=== PATIENT | male | born 1955 | race Caucasian/White ===

== ENCOUNTER → 2018-09-04 09:25 | Outpatient (CLI) | payer OTHER, SELFPAY ==
--- NOTE | 2018-09-04 09:28 | RAD_ITS ---
STUDY: X-RAY - ABDOMEN/PELVIS REASON FOR EXAM: Male, 62 years old. Right flank pain. Possible kidney stone. TECHNIQUE: Single AP view of the abdomen / pelvis. COMPARISON: None. FINDINGS: Normal visualized lung bases. No definite renal or ureteral stones. There is an unremarkable bowel gas pattern. There is no demonstrated free abdominal air. The visualized liver, spleen and kidneys are grossly normal in size and morphology. Surgical bowel sutures seen in the pelvis. Normal visualized osseous structures. RAD/Abdomen Single View IMPRESSION: No definite acute abnormality. No definite renal or ureteral stones are seen. Electronically Signed: Willian Lopez MD at 16:51 EDT , Service support ,
== END ==
PROVIDERS: Family Provider Family Medicine; PCP Family Medicine; Referring Provider Nurse Practitioner Adult Health; Visit Provider Nurse Practitioner Adult Health
DX: R10.9 Unspecified abdominal pain (principal)
CPT/HCPCS: 74018; 87077; 87086; 87088; 87186

== ENCOUNTER → 2019-02-10 08:31 | Outpatient (CLI) | payer OTHER, SELFPAY ==
[2019-02-03 08:47] VITALS: BMI 28.1
--- NOTE | 2019-02-10 08:37 | RAD_ITS ---
STUDY: X-RAY - LEFT FOOT CLINICAL: Male, 63 years old. Nonhealing wound to bottom tip of the great toe TECHNIQUE: 3 view(s) of the foot. COMPARISON: None. FINDINGS: Mild age-related degenerative changes throughout the foot. Soft tissue ulceration noted at the distal first toe at the plantar aspect with underlying soft tissue swelling and edema. No definite evidence of osseous destruction to represent osteomyelitis at this time. Vascular calcifications. RAD/Foot min 3 Views IMPRESSION: Degenerative changes and swelling as above. No definitive osteomyelitis Electronically Signed: Umesh Willingham DO at 8:24 EDT Tel , Service support ,
== END ==
PROVIDERS: Family Provider Family Medicine; PCP Family Medicine; Referring Provider Surgery; Visit Provider Surgery
DX: M79.675 Pain in left toe(s) (principal); M79.672 Pain in left foot
CPT/HCPCS: 73630

== ENCOUNTER 2019-02-17 10:00 | Outpatient (RCR) | payer OTHER, SELFPAY ==
[2019-02-03 08:47] VITALS: BP 149/84; PULSE 76; RESP 18; TEMP 37.3; BMI 28.1
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
--- NOTE | 2019-02-10 07:58 | ART_ITS ---
Reason For Study: ulcer Left Segmental Pressures Left brachial= 147mmHg. Left posterior tibial artery = 180mmHg. Left dorsalis pedis artery = 182mmHg. Left digit = 165 mmHg. The left dorsalis pedis waveforms are triphasic. The left posterior tibial artery waveforms are triphasic. Right Segmental Pressures Right brachial= 151mmHg. Right posterior tibial artery = 190mmHg. Right dorsalis pedis artery = 193mmHg. Right digit = 141 mmHg. The right dorsalis pedis waveforms are triphasic. The right posterior tibial artery waveforms are triphasic. Indices The right ankle brachial index by the dorsalis pedis is 1.28. The right ankle brachial index by the posterior tibial artery is 1.26. The right digital-brachial index is .93. The left ankle brachial index by the dorsalis pedis is 1.21. The left ankle brachial index by the posterior tibial artery is 1.19. The left digital-brachial index is 1.09. Interpretation Summary Triphasic Doppler waveforms are noted at ankle level bilaterally. Pulse-volume waveform amplitudes appear satisfactory at all levels bilaterally. Resting ankle-brachial indices are normal bilaterally. Digital-brachial indices are bilaterally normal. There is no evidence of significant atherosclerotic peripheral arterial occlusive disease bilaterally. Ordering Physician: Jorge Roque Performed By: JIMMY ANDERSON Charles
[2019-02-10 09:14] VITALS: BP 160/100; PULSE 73; RESP 18; TEMP 36.4
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
[2019-02-17 10:11] VITALS: BP 143/74; PULSE 77; RESP 18; TEMP 36.7; BMI 28.1
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
== END 2019-03-01 23:59 ==
LOC: WC 10:00
PROVIDERS: Family Provider Family Medicine; PCP Family Medicine; Referring Provider Surgery; Visit Provider Surgery
DX: E11.621 Type 2 diabetes mellitus with foot ulcer (principal); Z90.49 Acquired absence of other specified parts of digestive tract; I10 Essential (primary) hypertension; E11.42 Type 2 diabetes mellitus with diabetic polyneuropathy; L97.522 Non-pressure chronic ulcer of other part of left foot with fat layer exposed
CPT/HCPCS: 11042; 93923; 99204; G0463

== ENCOUNTER 2019-03-24 08:00 | Outpatient (RCR) | payer OTHER, SELFPAY ==
[2019-03-02 00:18] VITALS: BP 143/74; PULSE 77; RESP 18; TEMP 36.7
[2019-03-10 09:30] VITALS: BP 148/78; PULSE 76; RESP 16; TEMP 37.2; BMI 28.1
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
[2019-03-24 08:14] VITALS: BP 184/92; PULSE 77; RESP 16; TEMP 37.1; BMI 28.1
[2019-03-24 08:30] LABS: Bedside Glucose 121 mg/dL (70-110)
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
== END 2019-03-31 23:59 ==
LOC: WC 08:00
PROVIDERS: Family Provider Family Medicine; PCP Family Medicine; Referring Provider Surgery; Visit Provider Surgery
DX: E11.621 Type 2 diabetes mellitus with foot ulcer (principal); L97.522 Non-pressure chronic ulcer of other part of left foot with fat layer exposed; E11.42 Type 2 diabetes mellitus with diabetic polyneuropathy; I10 Essential (primary) hypertension; Z90.49 Acquired absence of other specified parts of digestive tract; Z79.899 Other long term (current) drug therapy
CPT/HCPCS: 11042; 82962

== ENCOUNTER 2019-04-29 16:30 | Outpatient (RCR) | payer OTHER, SELFPAY ==
[2019-04-01 00:36] VITALS: BP 184/92; PULSE 77; RESP 16; TEMP 37.1
[2019-04-08 09:17] VITALS: BP 177/95; PULSE 73; RESP 16; TEMP 36.5; BMI 28.1
--- NOTE | 2019-04-08 13:03 | PCM.WC.PN ---
(1) Chronic ulcer of left foot with fat layer exposed Status: Chronic Current Visit: Yes Code(s): L97.522 - Non-pressure chronic ulcer of other part of left foot with fat layer exposed (2) Hallux limitus of left foot Status: Acute Current Visit: Yes Code(s): M20.5X2 - Other deformities of toe(s) (acquired), left foot (3) Malnutrition Status: Acute Current Visit: Yes Code(s): E46 - Unspecified protein-calorie malnutrition (4) Delayed wound healing Status: Acute Current Visit: Yes Code(s): T14.8XXD - Other injury of unspecified body region, subsequent encounter (5) Type 2 diabetes mellitus with diabetic polyneuropathy Status: Acute Current Visit: Yes Code(s): E11.42 - Type 2 diabetes mellitus with diabetic polyneuropathy Type of Wound Date of Service: 04/09/19 Chief Complaint: Diabetic foot ulcer, left great toe, Valentine grade 1 History of Wound: This is a 63-year-old male who was recently diagnosed with diabetes mellitus. He has a history of peripheral neuropathy. 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 Jara. Treatment including offloading measures, and the patient was fitted with an appropriate offloading boot. The patient indicates that he nearly healed the ulceration, but subsequently reverted to his normal daily routine, and the ulcer recurred. He presents with an ulceration on the plantar aspect of the left great toe, and indicates that he has been wearing his former street shoes. He denies fever, chill, nausea, vomiting, redness or odor. He relates the ulcer has decreased in size. Progress of Wound: Stable - Physical Exam Vital Signs Temp Pulse Resp BP 97.7 F L 73 16 177/95 H 04/08/19 09:17 04/08/19 09:17 04/08/19 09:17 04/08/19 09:17 General: Alert, Oriented x3, Cooperative HEENT: Atraumatic Extremities: No cyanosis, Capillary Refill Less than 3 Seconds, No Calf Tenderness - Negative Florentin and Bernardo signs bilateral, Diminished Peripheral Pulses, Edema - Mild, - - Decreased noted first metatarsophalangeal joint range of motion bilateral Skin: Ulcer/ Wound - No purulence, erythema, streaking, odor, infection, necrosis or deep probing. The ulcer bed is granular. The peripheral skin is atrophic Wound Measurements and Assessment - Nurse 1 - General Ulcer Measurement Start: 04/08/19 09:16 Freq: Status: Active Protocol: Activity Type Activity Date Activity User E-Sign Co-Sign Detail Recorded Client Recorded Date Recorded By Document 04/08/19 09:17 [facility] [id number] 04/08/19 09:23 [facility] 04/08/19 09:17 Wound Center Nurse 1 [Ulcer Assessment] #1 L Grt Toe -Combined with other wound No -Current Size (cm) - Length 0.5 -Current Size (cm) - Width 0.3 -Current Size (cm) - Depth 0.3 -Total Square Cm 0.15 -Date of Last Picture (Recall this 04/08/19 field) -Photo Taken Yes -Epithelialization None Present -Tunneling No -Undermining/Tunneling Yes -Undermining/Tunneling Starts (O' 11 clock) -Undermining/Tunneling Ends (O'clock) 6 -Maximum Distance (cm) 0.3 -Circular Undermining No -Exudate Amt None Present -Wound Margin Flat & Intact -Granulation Amt Small (1-33%) -Granulation Quality Goessel -Slough/Fibrin Yes -Necrosis Amt Large (67-100%) -Necrotic Tissue Type Adherent Slough -Texture (Selma-wound Skin Appearance) Assessed Callus Scarring -Moisture (Selma-wound Skin Appearance Assessed ) Dry/Scaly -Color (Selma-wound Skin Appearance) Assessed -Temperature (Selma-wound Skin No Abnormality Appearance) (Pt Warm) -Tenderness on Palpation (Selma-wound No Skin Appearance) -Ulcer Cleansing Rinsed/ Irrigated with Saline -Foul Odor after Cleansing No -Anesthetic Used 5% Lidocaine Gel WC - Nurse 2 - General Ulcer CM Notes Start: 04/08/19 09:16 Freq: Status: Active Protocol: Activity Type Activity Date Activity User E-Sign Co-Sign Detail Recorded Client Recorded Date Recorded By Document 04/08/19 10:02 AN [id number] 04/08/19 10:07 AN 04/08/19 10:02 Wound Center Nurse 2 [Procedure/Treatment] -Time 10:03 -Correct Patient Yes -Correct Side, Site, Position Yes -Correct Procedure Yes -Procedure Performed Yes -Type of Procedure Debridement -Clinical Debridement Subcutaneous -Post Debridement Size (cm) - Length 0.6 -Post Debridement Size (cm) - Width 0.4 -Post Debridement Size (cm) - Depth 0.3 -Total Square Cm 0.24 -Wound/Ulcer Outcome Not Healed -Ulcer Cleansing Rinsed/ Irrigated with Saline -Foul Odor after Cleansing No -Bioengineered Tissue No -Bleeding Controlled with Pressure -Offloading No -Treatment Response Procedure Tolerated Well [See Physician Procedure note for Specifics] Pain Scale: 0-10 Numeric [Pain] -Is Patient Pain Free? Yes Musculoskeletal: No Tenderness to Palpation of Joints or Extremities, Muscle Wasting Neurological: - - Lack of normal epicritic sensation light touch Psych/Mental Status: Normal Affect, Appropriate Debridement Note Post-Debridement Measurements/Treatment WC - Nurse 2 - General Ulcer CM Notes Start: 04/08/19 09:16 Freq: Status: Active Protocol: Activity Type Activity Date Activity User E-Sign Co-Sign Detail Recorded Client Recorded Date Recorded By Document 04/08/19 10:02 RONALDO [id number] 04/08/19 10:07 AN 04/08/19 10:02 Wound Center Nurse 2 #1 L Grt Toe -Time 10:03 -Correct Patient Yes -Correct Side, Site, Position Yes -Correct Procedure Yes -Procedure Performed Yes -Type of Procedure Debridement -Clinical Debridement Subcutaneous -Post Debridement Size (cm) - Length 0.6 -Post Debridement Size (cm) - Width 0.4 -Post Debridement Size (cm) - Depth 0.3 -Total Square Cm 0.24 -Wound/Ulcer Outcome Not Healed -Ulcer Cleansing Rinsed/ Irrigated with Saline -Foul Odor after Cleansing No -Bioengineered Tissue No -Bleeding Controlled with Pressure -Offloading No -Treatment Response Procedure Tolerated Well Pain Scale: 0-10 Numeric Is Patient Pain Free? Yes Wound debrided: plantar hallux Laterality: Left Wound Grade/Stage: grade 1 Type of Debridement: Excisional debridement Anesthesia Used: 5% Lidocaine Gel Depth: in the subcutaneous layer Percentage of wound debrided: 100 Instrument Used: #15 blade Tissue Removed: fibrous, devitalized subcutaneous, biofilm, slough Severity: Fat Layer Exposed Amount of bleeding with debridement: Mild Bleeding Controlled with: Pressure Patient tolerated procedure well Assessment/Plan Active Problems Chronic ulcer of left foot with fat layer exposed (Chronic) Hallux limitus of left foot (Acute) Malnutrition (Acute) Delayed wound healing (Acute) Type 2 diabetes mellitus with diabetic polyneuropathy (Acute) Assessment: Left hallux ulcer. Hallux limitus. Diabetes with neuropathy. Delayed wound healing. Malnutrition suspected Plan: This is a 63-year-old male seen today for chronic ulceration and I reviewed and discussed his case. He has been using Santyl. Recommend advanced wound healing product, with regranix to optimize healing. The indication and purpose of his progress were discussed. This is medically necessary for limb salvage and to optimize healing. It is noted he failed other previous conservative care options. Prior authorization will be initiated. Recommend nutritional supplementation, Paulie. To drink twice daily. To better offload the ulcer site with a cam walker boot with offloading dual density Plastizote liners with a pocket. A prescription was provided for him to obtain at the [facility]. His previous noninvasive lower extremity arterial study was also performed,which appears to be normal, revealing triphasic waveforms at ankle level bilaterally, and normal resting ankle?brachial indices and normal digital?brachial indices bilaterally. His previous lab results have been obtained from [facility], dated January 12, 2019, with results as follows: Fasting glucose 126, erythrocyte sedimentation rate 8, total protein 6.5, hemoglobin A1c 6.2, folate 31.8, vitamin B12 613, albumin 3.3. Previous x-rays from 02/10/2019 reviewed without acute injuries or osseous destruction. To return to the wound healing center in 1 week or call sooner if he has any questions or concerns.
[2019-04-15 08:18] VITALS: BP 146/88; PULSE 75; RESP 14; TEMP 36.8; BMI 28.1
--- NOTE | 2019-04-15 09:19 | PCM.WC.PN ---
(1) Chronic ulcer of left foot with fat layer exposed Status: Chronic Current Visit: Yes Code(s): L97.522 - Non-pressure chronic ulcer of other part of left foot with fat layer exposed (2) Hallux limitus of left foot Status: Chronic Current Visit: Yes Code(s): M20.5X2 - Other deformities of toe(s) (acquired), left foot (3) Malnutrition Status: Chronic Current Visit: Yes Code(s): E46 - Unspecified protein-calorie malnutrition (4) Delayed wound healing Status: Chronic Current Visit: Yes Code(s): T14.8XXD - Other injury of unspecified body region, subsequent encounter (5) Type 2 diabetes mellitus with diabetic polyneuropathy Status: Chronic Current Visit: Yes Code(s): E11.42 - Type 2 diabetes mellitus with diabetic polyneuropathy Type of Wound Date of Service: 04/15/19 Chief Complaint: Diabetic foot ulcer, left great toe, Valentine grade 1 History of Wound: This is a 63-year-old male who was recently diagnosed with diabetes mellitus. He has a history of peripheral neuropathy also. He denies fever, chill, nausea, vomiting, loss of appetite. He does not obtain his offloading CAM Walker as advised and will have to push his appointment also next week due to an unplanned and his work schedule. He continues to wear crocs shoes which are not advised. He did obtain his nutrition supplementation Paulie paige and is taking this as advised. The prior authorization for regranix advanced wound healing product is still pending. He has been applying Santyl daily. Progress of Wound: Overall stable with improving ulcer bed quality - Physical Exam Vital Signs Temp Pulse Resp BP 98.2 F 75 14 146/88 H 04/15/19 08:18 04/15/19 08:18 04/15/19 08:18 04/15/19 08:18 General: Alert, Oriented x3, Cooperative HEENT: Atraumatic Extremities: No cyanosis, Capillary Refill Less than 3 Seconds, No Calf Tenderness, Diminished Peripheral Pulses, Edema - Mild, - - decrease loaded first metatarsophalangeal joint range of motion consistent with hallux limitus Skin: Ulcer/ Wound - No purulence, erythema, streaking, odor, infection, deep tissue exposure, eschar or necrosis. Peripheral skin is atrophic Wound Measurements and Assessment WC - Nurse 1 - General Ulcer Measurement Start: 04/08/19 09:16 Freq: Status: Active Protocol: Activity Type Activity Date Activity User E-Sign Co-Sign Detail Recorded Client Recorded Date Recorded By Document 04/15/19 08:18 CS [id number] 04/15/19 08:22 CS 04/15/19 08:18 Wound Center Nurse 1 [Ulcer Assessment] #1 L Grt Toe -Combined with other wound No -Current Size (cm) - Length 0.5 -Current Size (cm) - Width 0.3 -Current Size (cm) - Depth 0.4 -Total Square Cm 0.15 -Photo Taken No -Epithelialization None Present -Tunneling No -Undermining/Tunneling No -Circular Undermining No -Exudate Amt None Present -Wound Margin Thickened -Granulation Amt None Present (0 %) -Granulation Quality N/A -Slough/Fibrin Yes -Necrosis Amt Medium (34-66%) -Necrotic Tissue Type Adherent Slough -Structure Exposed None/Limited to Skin Breakdown -Texture (Selma-wound Skin Appearance) Callus -Moisture ([place]-wound Skin Appearance No Abnormality ) Assessed -Color ([place]ma-wound Skin Appearance) No Abnormality Assessed -Temperature ([place]-wound Skin No Abnormality Appearance) (Pt Warm) -Tenderness on Palpation ([place]-wound No Skin Appearance) -Ulcer Cleansing Rinsed/ Irrigated with Saline -Foul Odor after Cleansing No -Anesthetic Used 4% Lidocaine Solution [Edema Assessment] -Lower Limb Edema Present NA - Nurse 2 - General Ulcer CM Notes Start: 04/08/19 09:16 Freq: Status: Active Protocol: Activity Type Activity Date Activity User E-Sign Co-Sign Detail Recorded Client Recorded Date Recorded By Document 04/15/19 08:32 AN [id number] 04/15/19 08:35 AN 04/15/19 08:32 Wound Center Nurse 2 [Procedure/Treatment] #1 L Grt Toe -Time 08:34 -Correct Patient Yes -Correct Side, Site, Position Yes -Correct Procedure Yes -Procedure Performed Yes -Type of Procedure Debridement -Clinical Debridement Subcutaneous -Post Debridement Size (cm) - Length 0.6 -Post Debridement Size (cm) - Width 0.4 -Post Debridement Size (cm) - Depth 0.3 -Total Square Cm 0.24 -Wound/Ulcer Outcome Not Healed -Ulcer Cleansing Rinsed/ Irrigated with Saline -Foul Odor after Cleansing No -Bleeding Controlled with Pressure -Offloading Yes -Treatment Response Procedure Tolerated Well [See Physician Procedure note for Specifics] Pain Scale: 0-10 Numeric [Pain] -Is Patient Pain Free? Yes Musculoskeletal: No Tenderness to Palpation of Joints or Extremities, Muscle Wasting Neurological: - - Lack of normal epicritic sensation light touch and is consistent with neuropathy Psych/Mental Status: Normal Affect, Appropriate Debridement Note Post-Debridement Measurements/Treatment WC - Nurse 2 - General Ulcer CM Notes Start: 04/08/19 09:16 Freq: Status: Active Protocol: Activity Type Activity Date Activity User E-Sign Co-Sign Detail Recorded Client Recorded Date Recorded By Document 04/08/19 10:02 AN [id number] 04/08/19 10:07 AN Document 04/15/19 08:32 AN [id number] 04/15/19 08:35 AN 04/08/19 04/15/19 10:02 08:32 Wound Center Nurse 2 #1 L Grt Toe -Time 10:03 08:34 -Correct Patient Yes Yes -Correct Side, Site, Position Yes Yes -Correct Procedure Yes Yes -Procedure Performed Yes Yes -Type of Procedure Debridement Debridement -Clinical Debridement Subcutaneous Subcutaneous -Post Debridement Size (cm) - Length 0.6 0.6 -Post Debridement Size (cm) - Width 0.4 0.4 -Post Debridement Size (cm) - Depth 0.3 0.3 -Total Square Cm 0.24 0.24 -Wound/Ulcer Outcome Not Healed Not Healed -Ulcer Cleansing Rinsed/ Rinsed/ Irrigated with Irrigated with Saline Saline -Foul Odor after Cleansing No No -Bioengineered Tissue No -Bleeding Controlled with Pressure Pressure -Offloading No Yes -Treatment Response Procedure Procedure Tolerated Well Tolerated Well Pain Scale: 0-10 Numeric Is Patient Pain Free? Yes Yes Wound debrided: plantar hallux Laterality: Left Wound Grade/Stage: grade 1 Type of Debridement: Excisional debridement Anesthesia Used: 5% Lidocaine Gel Depth: in the subcutaneous layer Percentage of wound debrided: 100 Instrument Used: #15 blade Tissue Removed: fibrous, devitalized subcutaneous, biofilm, slough Severity: Fat Layer Exposed Amount of bleeding with debridement: Mild Bleeding Controlled with: Pressure Patient tolerated procedure well Assessment/Plan Active Problems Chronic ulcer of left foot with fat layer exposed (Chronic) Hallux limitus of left foot (Chronic) Malnutrition (Chronic) Delayed wound healing (Chronic) Type 2 diabetes mellitus with diabetic polyneuropathy (Chronic) Assessment: Left hallux ulcer with fat layer exposed. Hallux limitus. Diabetes with neuropathy. Delayed wound healing. Malnutrition suspected Plan: This is a 63-year-old male seen today for chronic ulceration and I reviewed and discussed his case. He has been using Santyl. I recommend application of Leigh today and he should change this every day; he is amendable. The purpose of this has been explaining he is ready for collagen dressing now that the ulcer bed quality has improved. I also recommend advanced wound healing product, with regranix to optimize healing. The indication and purpose of his progress were discussed. This is medically necessary for limb salvage and to optimize healing. It is noted he failed other previous conservative care options. Prior authorization will be initiated and this is still pending. to continue nutritional supplementation, Paulie. To drink twice daily. To better offload the ulcer site with a cam walker boot with offloading dual density Plastizote liners with a pocket. A prescription was provided for him to obtain at [facility]. His previous noninvasive lower extremity arterial study was also performed,which appears to be normal, revealing triphasic waveforms at ankle level bilaterally, and normal resting ankle?brachial indices and normal digital?brachial indices bilaterally. His previous lab results have been obtained from [facility], dated January 12, 2019, with results as follows: Fasting glucose 126, erythrocyte sedimentation rate 8, total protein 6.5, hemoglobin A1c 6.2, folate 31.8, vitamin B12 613, albumin 3.3. Previous x-rays from 02/10/2019 reviewed without acute injuries or osseous destruction. To return to the wound healing center in 1 week or call sooner if he has any questions or concerns.
[2019-04-22 16:05] VITALS: BP 138/83; PULSE 70; RESP 18; TEMP 36.5; BMI 28.1
--- NOTE | 2019-04-22 16:47 | PCM.WC.PN ---
(1) Chronic ulcer of left foot with fat layer exposed Status: Chronic Current Visit: Yes Code(s): L97.522 - Non-pressure chronic ulcer of other part of left foot with fat layer exposed (2) Hallux limitus of left foot Status: Chronic Current Visit: Yes Code(s): M20.5X2 - Other deformities of toe(s) (acquired), left foot (3) Malnutrition Status: Chronic Current Visit: Yes Code(s): E46 - Unspecified protein-calorie malnutrition (4) Delayed wound healing Status: Chronic Current Visit: Yes Code(s): T14.8XXD - Other injury of unspecified body region, subsequent encounter (5) Type 2 diabetes mellitus with diabetic polyneuropathy Status: Chronic Current Visit: Yes Code(s): E11.42 - Type 2 diabetes mellitus with diabetic polyneuropathy (6) Pre-ulcerative corn or callous Status: Chronic Current Visit: Yes Code(s): L84 - Corns and callosities Type of Wound Date of Service: 04/22/19 Chief Complaint: Diabetic foot ulcer, left great toe, Valentine grade 1 History of Wound: This is a 63-year-old male who was recently diagnosed with diabetes mellitus. He has a history of peripheral neuropathy also. He denies fever, chill, nausea, vomiting, loss of appetite. He does not obtain his offloading CAM Walker as advised and is scheduled to get this tomorrow. He continues to wear crocs shoes which are not advised. He did obtain his nutrition supplementation Paulie paige and is taking this as advised. reGranix has been ordered for him. Progress of Wound: Stable - Physical Exam Vital Signs Temp Pulse Resp BP 97.7 F L 70 18 138/83 H 04/22/19 16:05 04/22/19 16:05 04/22/19 16:05 04/22/19 16:05 General: Alert, Oriented x3, Cooperative Extremities: No cyanosis, Capillary Refill Less than 3 Seconds, No Calf Tenderness, Diminished Peripheral Pulses, Edema, - - Decreased loaded first metatarsophalangeal joint range of motion Skin: Ulcer/ Wound - No purulence, erythema, streaking, odor, or infection. No deep probing or necrosis or interdigital maceration. Peripheral skin is hairless and atrophic. Wound Measurements and Assessment WC - Nurse 1 - General Ulcer Measurement Start: 04/08/19 09:16 Freq: Status: Active Protocol: Activity Type Activity Date Activity User E-Sign Co-Sign Detail Recorded Client Recorded Date Recorded By Document 04/22/19 16:05 RB [id number] 04/22/19 16:08 RB 04/22/19 16:05 Wound Center Nurse 1 [Ulcer Assessment] #1 L Grt Toe -Combined with other wound No -Current Size (cm) - Length 0.3 -Current Size (cm) - Width 0.2 -Current Size (cm) - Depth 0.2 -Total Square Cm 0.06 -Tunneling No -Undermining/Tunneling Yes -Undermining/Tunneling Starts (O' 12 clock) -Undermining/Tunneling Ends (O'clock) 12 -Maximum Distance (cm) 0.1 -Circular Undermining Yes -Exudate Amt Small -Exudate Type Serosanguineous -Wound Margin Distinct, Outline Attached -Granulation Amt Medium (34-66%) -Granulation Quality [place] -Slough/Fibrin Yes -Necrosis Amt Small (1-33%) -Necrotic Tissue Type Adherent Slough -Structure Exposed N/A -Texture (Selma-wound Skin Appearance) Assessed -Moisture (Selma-wound Skin Appearance Assessed ) -Color (Selma-wound Skin Appearance) Assessed -Temperature (Selma-wound Skin No Abnormality Appearance) (Pt Warm) -Tenderness on Palpation (Selma-wound No Skin Appearance) -Ulcer Cleansing Rinsed/ Irrigated with Saline -Foul Odor after Cleansing No -Anesthetic Used 5% Lidocaine Gel WC - Nurse 2 - General Ulcer CM Notes Start: 04/08/19 09:16 Freq: Status: Active Protocol: Activity Type Activity Date Activity User E-Sign Co-Sign Detail Recorded Client Recorded Date Recorded By Document 04/22/19 16:39 AN [id number] 04/22/19 16:42 AN 04/22/19 16:39 Wound Center Nurse 2 [Procedure/Treatment] -Time 16:42 -Correct Patient Yes -Correct Side, Site, Position Yes -Correct Procedure Yes -Procedure Performed Yes -Type of Procedure Debridement -Clinical Debridement Subcutaneous -Post Debridement Size (cm) - Length 0.6 -Post Debridement Size (cm) - Width 0.5 -Post Debridement Size (cm) - Depth 0.4 -Total Square Cm 0.30 -Wound/Ulcer Outcome Not Healed -Ulcer Cleansing Rinsed/ Irrigated with Saline -Foul Odor after Cleansing No -Bioengineered Tissue No -Bleeding Controlled with Pressure -Type of Offloading Camwalker -Treatment Response Procedure Tolerated Well [See Physician Procedure note for Specifics] Pain Scale: 0-10 Numeric [Pain] -Is Patient Pain Free? Yes Musculoskeletal: No Tenderness to Palpation of Joints or Extremities, Muscle Wasting, - - Compartments soft to palpate Neurological: - - Lack of normal epicritic sensation light touch consistent with neuropathy Psych/Mental Status: Normal Affect, Appropriate Debridement Note Post-Debridement Measurements/Treatment WC - Nurse 2 - General Ulcer CM Notes Start: 04/08/19 09:16 Freq: Status: Active Protocol: Activity Type Activity Date Activity User E-Sign Co-Sign Detail Recorded Client Recorded Date Recorded By Document 04/08/19 10:02 AN [id number] 04/08/19 10:07 AN Document 04/15/19 08:32 AN [id number] 04/15/19 08:35 AN Document 04/22/19 16:39 AN [id number] 04/22/19 16:42 AN 04/08/19 04/15/19 04/22/19 10:02 08:32 16:39 Wound Center Nurse 2 #1 L Grt Toe -Time 10:03 08:34 16:42 -Correct Patient Yes Yes Yes -Correct Side, Site, Position Yes Yes Yes -Correct Procedure Yes Yes Yes -Procedure Performed Yes Yes Yes -Type of Procedure Debridement Debridement Debridement -Clinical Debridement Subcutaneous Subcutaneous Subcutaneous -Post Debridement Size (cm) - Length 0.6 0.6 0.6 -Post Debridement Size (cm) - Width 0.4 0.4 0.5 -Post Debridement Size (cm) - Depth 0.3 0.3 0.4 -Total Square Cm 0.24 0.24 0.30 -Wound/Ulcer Outcome Not Healed Not Healed Not Healed -Ulcer Cleansing Rinsed/ Rinsed/ Rinsed/ Irrigated with Irrigated with Irrigated with Saline Saline Saline -Foul Odor after Cleansing No No No -Bioengineered Tissue No No -Bleeding Controlled with Pressure Pressure Pressure -Offloading No Yes -Type of Offloading Camwalker -Treatment Response Procedure Procedure Procedure Tolerated Well Tolerated Well Tolerated Well Pain Scale: 0-10 Numeric Is Patient Pain Free? Yes Yes Yes Wound debrided: plantar distal hallux Laterality: Left Type of Debridement: Excisional debridement Anesthesia Used: 5% Lidocaine Gel Depth: in the subcutaneous layer Percentage of wound debrided: 100 Instrument Used: #15 blade Tissue Removed: fibrous, devitalized subcutaneous, biofilm, slough Severity: Fat Layer Exposed Amount of bleeding with debridement: Mild Bleeding Controlled with: Pressure Patient tolerated procedure well Assessment/Plan Active Problems Chronic ulcer of left foot with fat layer exposed (Chronic) Hallux limitus of left foot (Chronic) Malnutrition (Chronic) Delayed wound healing (Chronic) Type 2 diabetes mellitus with diabetic polyneuropathy (Chronic) Pre-ulcerative corn or callous (Chronic) Assessment: Left hallux ulcer with fat layer exposed. Hallux limitus. Diabetes with neuropathy. Delayed wound healing. Malnutrition suspected Plan: This is a 63-year-old male seen today for chronic ulceration and I reviewed and discussed his case. He has been using Santyl. I recommend application of Leigh today. he was also approved for advanced wound product, regranex and this will be applied daily at home. The purpose of this has been explaining he is ready for collagen dressing now that the ulcer bed quality has improved. To continue nutritional supplementation, Paulie. To drink twice daily. To better offload the ulcer site with a cam walker boot with offloading dual density Plastizote liners with a pocket. A prescription was provided for him to obtain at the [facility] ankle Center. His previous noninvasive lower extremity arterial study was also performed,which appears to be normal, revealing triphasic waveforms at ankle level bilaterally, and normal resting ankle?brachial indices and normal digital?brachial indices bilaterally. His previous lab results have been obtained from [facility], dated January 12, 2019, with results as follows: Fasting glucose 126, erythrocyte sedimentation rate 8, total protein 6.5, hemoglobin A1c 6.2, folate 31.8, vitamin B12 613, albumin 3.3. Previous x-rays from 02/10/2019 reviewed without acute injuries or osseous destruction. To return to the wound healing center in 1 week or call sooner if he has any questions or concerns.
[2019-04-29 16:41] VITALS: BP 137/84; PULSE 71; RESP 18; TEMP 36.6; BMI 28.1
--- NOTE | 2019-04-29 17:08 | PCM.WC.PN ---
(1) Chronic ulcer of left foot with fat layer exposed Status: Chronic Code(s): L97.522 - Non-pressure chronic ulcer of other part of left foot with fat layer exposed (2) Hallux limitus of left foot Status: Chronic Code(s): M20.5X2 - Other deformities of toe(s) (acquired), left foot (3) Malnutrition Status: Chronic Code(s): E46 - Unspecified protein-calorie malnutrition (4) Delayed wound healing Status: Chronic Code(s): T14.8XXD - Other injury of unspecified body region, subsequent encounter (5) Type 2 diabetes mellitus with diabetic polyneuropathy Status: Chronic Code(s): E11.42 - Type 2 diabetes mellitus with diabetic polyneuropathy (6) Pre-ulcerative corn or callous Status: Chronic Code(s): L84 - Corns and callosities Type of Wound Date of Service: 04/29/19 Chief Complaint: Diabetic foot ulcer, left great toe, Valentine grade 1 History of Wound: This is a 63-year-old male who was recently diagnosed with diabetes mellitus. He has a history of peripheral neuropathy also. He denies fever, chill, nausea, vomiting, loss of appetite. He does not obtain his offloading CAM Walker as advised and is scheduled to get this tomorrow. He now wears a cam walker offloading boot as advised. He did obtain his nutrition supplementation Paulie paige and is taking this as advised. reGranix has been ordered for him and he recently actually forgot this at work. Progress of Wound: Stable - Physical Exam Vital Signs Temp Pulse Resp BP 98 F 71 18 137/84 H 04/29/19 16:41 04/29/19 16:41 04/29/19 16:41 04/29/19 16:41 General: Alert, Oriented x3, Cooperative, No apparent distress Extremities: No cyanosis, Capillary Refill Less than 3 Seconds, No Calf Tenderness - Negative Florentin and Bernardo signs bilateral, Diminished Peripheral Pulses, Edema - Mild Skin: Ulcer/ Wound - No purulence, erythema, streaking, odor, or infection. No interdigital maceration. Peripheral skin is hairless and atrophic. There is no deep probing. Wound Measurements and Assessment WC - Nurse 1 - General Ulcer Measurement Start: 04/08/19 09:16 Freq: Status: Active Protocol: Activity Type Activity Date Activity User E-Sign Co-Sign Detail Recorded Client Recorded Date Recorded By Document 04/29/19 16:41 RB [id number] 04/29/19 16:46 RB 04/29/19 16:41 Wound Center Nurse 1 [Ulcer Assessment] #1 L Grt Toe -Combined with other wound No -Current Size (cm) - Length 0.5 -Current Size (cm) - Width 0.3 -Current Size (cm) - Depth 0.3 -Total Square Cm 0.15 -Tunneling No -Undermining/Tunneling No -Circular Undermining No -Exudate Amt Small -Exudate Type Serosanguineous -Wound Margin Thickened -Granulation Amt Medium (34-66%) -Granulation Quality Pale -Slough/Fibrin Yes -Necrosis Amt Medium (34-66%) -Necrotic Tissue Type Adherent Slough -Structure Exposed N/A -Texture (Selma-wound Skin Appearance) Callus -Moisture (Selma-wound Skin Appearance Assessed ) -Color (Selma-wound Skin Appearance) Assessed -Temperature ([place]ma-wound Skin No Abnormality Appearance) (Pt Warm) -Tenderness on Palpation (Selma-wound No Skin Appearance) -Ulcer Cleansing Rinsed/ Irrigated with Saline -Foul Odor after Cleansing No -Anesthetic Used 4% Lidocaine Solution WC - Nurse 2 - General Ulcer CM Notes Start: 04/08/19 09:16 Freq: Status: Active Protocol: Activity Type Activity Date Activity User E-Sign Co-Sign Detail Recorded Client Recorded Date Recorded By Document 04/29/19 17:04 AN [id number] 04/29/19 17:07 AN 04/29/19 17:04 Wound Center Nurse 2 [Procedure/Treatment] -Time 17:05 -Correct Patient Yes -Correct Side, Site, Position Yes -Correct Procedure Yes -Procedure Performed Yes -Type of Procedure Debridement -Clinical Debridement Subcutaneous -Post Debridement Size (cm) - Length 0.6 -Post Debridement Size (cm) - Width 0.4 -Post Debridement Size (cm) - Depth 0.3 -Total Square Cm 0.24 -Wound/Ulcer Outcome Not Healed -Ulcer Cleansing Rinsed/ Irrigated with Saline -Bleeding Controlled with Pressure -Offloading Yes -Type of Offloading Camwalker -Treatment Response Procedure Tolerated Well [See Physician Procedure note for Specifics] Pain Scale: 0-10 Numeric [Pain] -Is Patient Pain Free? Yes Musculoskeletal: No Tenderness to Palpation of Joints or Extremities, Muscle Wasting, - - Decreased loaded first metatarsophalangeal joint range of motion consistent with hallux limitus Neurological: - - Lack of normal epicritic sensation light touch consistent with neuropathy Psych/Mental Status: Normal Affect, Appropriate Debridement Note Post-Debridement Measurements/Treatment WC - Nurse 2 - General Ulcer CM Notes Start: 04/08/19 09:16 Freq: Status: Active Protocol: Activity Type Activity Date Activity User E-Sign Co-Sign Detail Recorded Client Recorded Date Recorded By Document 04/08/19 10:02 AN [id number] 04/08/19 10:07 AN Document 04/15/19 08:32 AN [id number] 04/15/19 08:35 AN Document 04/22/19 16:39 AN [id number] 04/22/19 16:42 AN Document 04/29/19 17:04 AN [id number] 04/29/19 17:07 AN 04/08/19 04/15/19 04/22/19 10:02 08:32 16:39 Wound Center Nurse 2 #1 L Grt Toe -Time 10:03 08:34 16:42 -Correct Patient Yes Yes Yes -Correct Side, Site, Position Yes Yes Yes -Correct Procedure Yes Yes Yes -Procedure Performed Yes Yes Yes -Type of Procedure Debridement Debridement Debridement -Clinical Debridement Subcutaneous Subcutaneous Subcutaneous -Post Debridement Size (cm) - Length 0.6 0.6 0.6 -Post Debridement Size (cm) - Width 0.4 0.4 0.5 -Post Debridement Size (cm) - Depth 0.3 0.3 0.4 -Total Square Cm 0.24 0.24 0.30 -Wound/Ulcer Outcome Not Healed Not Healed Not Healed -Ulcer Cleansing Rinsed/ Rinsed/ Rinsed/ Irrigated with Irrigated with Irrigated with Saline Saline Saline -Foul Odor after Cleansing No No No -Bioengineered Tissue No No -Bleeding Controlled with Pressure Pressure Pressure -Offloading No Yes -Type of Offloading Camwalker -Treatment Response Procedure Procedure Procedure Tolerated Well Tolerated Well Tolerated Well Pain Scale: 0-10 Numeric Is Patient Pain Free? Yes Yes Yes 04/29/19 17:04 Wound Center Nurse 2 #1 L Grt Toe -Time 17:05 -Correct Patient Yes -Correct Side, Site, Position Yes -Correct Procedure Yes -Procedure Performed Yes -Type of Procedure Debridement -Clinical Debridement Subcutaneous -Post Debridement Size (cm) - Length 0.6 -Post Debridement Size (cm) - Width 0.4 -Post Debridement Size (cm) - Depth 0.3 -Total Square Cm 0.24 -Wound/Ulcer Outcome Not Healed -Ulcer Cleansing Rinsed/ Irrigated with Saline -Foul Odor after Cleansing -Bioengineered Tissue -Bleeding Controlled with Pressure -Offloading Yes -Type of Offloading Camwalker -Treatment Response Procedure Tolerated Well Pain Scale: 0-10 Numeric Is Patient Pain Free? Yes Wound debrided: hallux Laterality: Left Wound Grade/Stage: grade 1 Type of Debridement: Excisional debridement Anesthesia Used: 5% Lidocaine Gel Depth: in the subcutaneous layer Percentage of wound debrided: 100 Instrument Used: #15 blade Tissue Removed: fibrous, devitalized subcutaneous, biofilm, slough Severity: Fat Layer Exposed Amount of bleeding with debridement: Mild Bleeding Controlled with: Pressure Patient tolerated procedure well Assessment/Plan Assessment: Left hallux ulcer with fat layer exposed. Hallux limitus. Diabetes with neuropathy. Delayed wound healing. Malnutrition suspected Plan: This is a 63-year-old male seen today for chronic ulceration and I reviewed and discussed his case. He has been using Santyl and regranix this past week. He will resume regranix use when he obtains it from work. His schedule. The purpose of this has been explaining he is ready for collagen dressing now that the ulcer bed quality has improved. To continue nutritional supplementation, Paulie. To drink twice daily. To better offload the ulcer site with a cam walker boot with offloading dual density Plastizote liners with a pocket. His previous noninvasive lower extremity arterial study was also performed,which appears to be normal, revealing triphasic waveforms at ankle level bilaterally, and normal resting ankle?brachial indices and normal digital?brachial indices bilaterally. His previous lab results have been obtained from [facility], dated January 12, 2019, with results as follows: Fasting glucose 126, erythrocyte sedimentation rate 8, total protein 6.5, hemoglobin A1c 6.2, folate 31.8, vitamin B12 613, albumin 3.3. Previous x-rays from 02/10/2019 reviewed without acute injuries or osseous destruction. To return to the wound healing center in 1 week or call sooner if he has any questions or concerns.
== END 2019-05-01 23:59 ==
LOC: WC 16:30
PROVIDERS: Family Provider Family Medicine; PCP Family Medicine; Referring Provider Surgery; Visit Provider Podiatrist
DX: E11.621 Type 2 diabetes mellitus with foot ulcer (principal); M20.5X2 Other deformities of toe(s) (acquired), left foot; E11.42 Type 2 diabetes mellitus with diabetic polyneuropathy; L97.522 Non-pressure chronic ulcer of other part of left foot with fat layer exposed
CPT/HCPCS: 11042; 11044

== ENCOUNTER 2019-05-27 08:30 | Outpatient (RCR) | payer OTHER, SELFPAY ==
[2019-05-02 00:31] VITALS: BP 137/84; PULSE 71; RESP 18; TEMP 36.6
[2019-05-06 09:04] VITALS: BP 157/98; PULSE 68; RESP 18; TEMP 36.6; BMI 28.1
--- NOTE | 2019-05-06 11:50 | PCM.WC.PN ---
(1) Chronic ulcer of left foot with fat layer exposed Status: Chronic Code(s): L97.522 - Non-pressure chronic ulcer of other part of left foot with fat layer exposed (2) Skin ulcer of left foot Status: Acute Code(s): L97.529 - Non-pressure chronic ulcer of other part of left foot with unspecified severity (3) Diabetic neuropathy Status: Chronic Qualifiers: Diabetes mellitus type: type 2 Code(s): E11.40 - Type 2 diabetes mellitus with diabetic neuropathy, unspecified (4) Hallux limitus of left foot Status: Chronic Code(s): M20.5X2 - Other deformities of toe(s) (acquired), left foot (5) Malnutrition Status: Chronic Code(s): E46 - Unspecified protein-calorie malnutrition (6) Delayed wound healing Status: Chronic Code(s): T14.8XXD - Other injury of unspecified body region, subsequent encounter (7) Pre-ulcerative corn or callous Status: Chronic Code(s): L84 - Corns and callosities Type of Wound Date of Service: 05/06/19 Chief Complaint: Diabetic foot ulcer, left great toe, Valentine grade 1. Callus right great toe History of Wound: This is a 63-year-old male who was recently diagnosed with diabetes mellitus. He has a history of peripheral neuropathy also. He denies fever, chill, nausea, vomiting, loss of appetite. He did obtain his offloading CAM Walker as advised and intermittently still wears other close shoes which is not advised. He did obtain his nutrition supplementation Paulie paige and is taking this as advised. He changes the dressing daily with her Granix. He also complains of a callus formation to his other foot on the right great toe which she is worried will turn into wound; he asked for help trimming this today which she is not able to safely perform on his own. Progress of Wound: Stable - Physical Exam Vital Signs Temp Pulse Resp BP 97.9 F 68 18 157/98 H 05/06/19 09:04 05/06/19 09:04 05/06/19 09:04 05/06/19 09:04 General: Alert, Oriented x3, Cooperative, No apparent distress HEENT: Atraumatic Extremities: No cyanosis, Capillary Refill Less than 3 Seconds, No Calf Tenderness - Negative Florentin and Bernardo signs bilateral, Diminished Peripheral Pulses, Edema - Mild, - - No fluctuance or bogginess on palpation bilateral. Decreased loaded first metatarsophalangeal joint range of motion bilateral Skin: Ulcer/ Wound - No purulence, erythema, streaking, odor, infection bilateral. There is no deep probing the necrosis left hallux. There is callus formation with some hemorrhagic bleeding noted to the right distal hallux. Upon debridement there is no skin discontinuity or infection. The peripheral skin is hairless and atrophic bilateral lower extremities Wound Measurements and Assessment WC - Nurse 1 - General Ulcer Measurement Start: 05/06/19 09:03 Freq: Status: Active Protocol: Activity Type Activity Date Activity User E-Sign Co-Sign Detail Recorded Client Recorded Date Recorded By Document 05/06/19 09:04 RB [id number] 05/06/19 09:06 RB 05/06/19 09:04 Wound Center Nurse 1 [Ulcer Assessment] #1 L Grt Toe -Combined with other wound No -Current Size (cm) - Length 0.3 -Current Size (cm) - Width 0.2 -Current Size (cm) - Depth 0.2 -Total Square Cm 0.06 -Tunneling No -Undermining/Tunneling No -Circular Undermining No -Exudate Amt Small -Exudate Type Serosanguineous -Wound Margin Thickened -Granulation Amt Medium (34-66%) -Granulation Quality [place] -Slough/Fibrin Yes -Necrosis Amt Small (1-33%) -Necrotic Tissue Type Adherent Slough -Structure Exposed N/A -Texture (Selma-wound Skin Appearance) Assessed Callus -Moisture (Selma-wound Skin Appearance Assessed ) -Color (Selma-wound Skin Appearance) Assessed -Temperature (Selma-wound Skin No Abnormality Appearance) (Pt Warm) -Tenderness on Palpation (Selma-wound No Skin Appearance) -Ulcer Cleansing Rinsed/ Irrigated with Saline -Foul Odor after Cleansing No -Anesthetic Used 4% Lidocaine Solution WC - Nurse 2 - General Ulcer CM Notes Start: 05/06/19 09:03 Freq: Status: Active Protocol: Activity Type Activity Date Activity User E-Sign Co-Sign Detail Recorded Client Recorded Date Recorded By Document 05/06/19 09:16 DARIEN [id number] 05/06/19 09:16 DARIEN 05/06/19 09:16 Wound Center Nurse 2 [Procedure/Treatment] -Time 09:16 -Correct Patient Yes -Correct Side, Site, Position Yes -Correct Procedure Yes -Procedure Performed Yes -Type of Procedure Debridement -Clinical Debridement Subcutaneous -Post Debridement Size (cm) - Length 0.4 -Post Debridement Size (cm) - Width 0.3 -Post Debridement Size (cm) - Depth 0.2 -Total Square Cm 0.12 -Wound/Ulcer Outcome Not Healed -Ulcer Cleansing Rinsed/ Irrigated with Saline -Foul Odor after Cleansing No -Bioengineered Tissue No -Bleeding Controlled with Pressure -Offloading Yes -Type of Offloading Camwalker -Treatment Response Procedure Tolerated Well [See Physician Procedure note for Specifics] Pain Scale: 0-10 Numeric [Pain] -Is Patient Pain Free? Yes Musculoskeletal: No Tenderness to Palpation of Joints or Extremities, Muscle Wasting Neurological: - - Lack of epicritic sensation light touch consistent with neuropathy bilateral lower extremities Psych/Mental Status: Normal Affect, Appropriate Debridement Note Post-Debridement Measurements/Treatment WC - Nurse 2 - General Ulcer CM Notes Start: 05/06/19 09:03 Freq: Status: Active Protocol: Activity Type Activity Date Activity User E-Sign Co-Sign Detail Recorded Client Recorded Date Recorded By Document 05/06/19 09:16 DARIEN [id number] 05/06/19 09:16 DARIEN 05/06/19 09:16 Wound Center Nurse 2 #1 L Grt Toe -Time 09:16 -Correct Patient Yes -Correct Side, Site, Position Yes -Correct Procedure Yes -Procedure Performed Yes -Type of Procedure Debridement -Clinical Debridement Subcutaneous -Post Debridement Size (cm) - Length 0.4 -Post Debridement Size (cm) - Width 0.3 -Post Debridement Size (cm) - Depth 0.2 -Total Square Cm 0.12 -Wound/Ulcer Outcome Not Healed -Ulcer Cleansing Rinsed/ Irrigated with Saline -Foul Odor after Cleansing No -Bioengineered Tissue No -Bleeding Controlled with Pressure -Offloading Yes -Type of Offloading Camwalker -Treatment Response Procedure Tolerated Well Pain Scale: 0-10 Numeric Is Patient Pain Free? Yes Wound debrided: plantar distal hallux Laterality: Left Wound Grade/Stage: grade 1 Type of Debridement: Excisional debridement Anesthesia Used: 5% Lidocaine Gel Depth: in the subcutaneous layer Percentage of wound debrided: 100 Instrument Used: #15 blade Tissue Removed: fibrous, devitalized subcutaneous, biofilm, slough Severity: Fat Layer Exposed Amount of bleeding with debridement: Mild Bleeding Controlled with: Pressure Patient tolerated procedure well Assessment/Plan Assessment: Left hallux ulcer with fat layer exposed. Right hallux callus. Hallux limitus. Diabetes with neuropathy. Delayed wound healing. Malnutrition suspected Plan: This is a 63-year-old male seen today for chronic ulceration and I reviewed and discussed his case. He has been using Regranex daily; to continue use. To continue nutritional supplementation, Paulie. To drink twice daily. To better offload the ulcer site with a cam walker boot with offloading dual density Plastizote liners with a pocket. He obtained this already. His previous noninvasive lower extremity arterial study was also performed,which appears to be normal, revealing triphasic waveforms at ankle level bilaterally, and normal resting ankle?brachial indices and normal digital?brachial indices bilaterally. His previous lab results have been obtained from [facility], dated January 12, 2019, with results as follows: Fasting glucose 126, erythrocyte sedimentation rate 8, total protein 6.5, hemoglobin A1c 6.2, folate 31.8, vitamin B12 613, albumin 3.3. Previous x-rays from 02/10/2019 reviewed without acute injuries or osseous destruction. The callus on the left hallux was debrided with a 15 blade without incident after verbal consent was obtained. He tolerated this well. He is unable to perform this safely on his own and it is noted he has diabetes with neuropathy and bilateral foot deformities including hallux limitus. He reports that he only has a diagnosis of prediabetes and is under the management of his primary care physician. Tissue appears to bite his hallux on his right foot and I recommended obtaining properly fitted shoes that are the proper length, width, and depth. I did give him a referral with a prescription to obtain extra-depth shoe with dual density offloading liners with offloading pocket to further prevent additional ulcer and callus formation. He will present to the foot and ankle Center to complete this process. To return to the wound healing center in 2 weeks or call sooner if he has any questions or concerns.
[2019-05-20 08:46] VITALS: BP 145/99; PULSE 78; RESP 16; TEMP 36.7; BMI 28.1
--- NOTE | 2019-05-20 10:08 | PN.PCM_ITS ---
(1) Non-pressure chronic ulcer of other part of left foot with fat layer exposed Status: Chronic Current Visit: Yes Code(s): L97.522 - Non-pressure chronic ulcer of other part of left foot with fat layer exposed (2) Chronic ulcer of left foot with fat layer exposed Status: Chronic Current Visit: Yes Code(s): L97.522 - Non-pressure chronic ulcer of other part of left foot with fat layer exposed (3) Diabetic neuropathy Status: Chronic Current Visit: Yes Qualifiers: Diabetes mellitus type: type 2 Code(s): E11.40 - Type 2 diabetes mellitus with diabetic neuropathy, unspecified (4) Hallux limitus of left foot Status: Chronic Current Visit: Yes Code(s): M20.5X2 - Other deformities of toe(s) (acquired), left foot (5) Malnutrition Status: Chronic Current Visit: Yes Code(s): E46 - Unspecified protein- calorie malnutrition (6) Delayed wound healing Status: Chronic Current Visit: Yes Code(s): T14.8XXD - Other injury of unspecified body region, subsequent encounter Type of Wound Date of Service: 05/20/19 Chief Complaint: Diabetic foot ulcer, left great toe, Valentine grade 1 History of Wound: This is a 63-year-old male who was recently diagnosed with diabetes mellitus. He has a history of peripheral neuropathy also. He denies fever, chill, nausea, vomiting, loss of appetite. He wears offloading CAM Walker except when he performs yard work daily. He did obtain his nutrition supplementation Paulie paige and is taking this as advised. He changes the dressing daily with reGranix. Progress of Wound: Stable - Physical Exam Vital Signs Temp Pulse Resp BP 98.1 F 78 16 145/99 H 05/20/19 08:46 05/20/19 08:46 05/20/19 08:46 05/20/19 08:46 General: Alert, Oriented x3, Cooperative, No apparent distress Extremities: No cyanosis, Capillary Refill Less than 3 Seconds, No Calf Tenderness, Diminished Peripheral Pulses, Edema - Mild Skin: Ulcer/ Wound - No purulence, erythema, streaking, odor, infection, deep probing or necrosis. The peripheral skin is hairless and atrophic to the left foot. There are no ulcers noted to the right foot Wound Measurements and Assessment WC - Nurse 1 - General Ulcer Measurement Start: 05/06/19 09:03 Freq: Status: Active Protocol: Activity Type Activity Date Activity User E-Sign Co-Sign Detail Recorded Client Recorded Date Recorded By Document 05/20/19 08:46 [facility] [id number] 05/20/19 08:52 [facility] 05/20/19 08:46 Wound Center Nurse 1 [Ulcer Assessment] #1 L Grt Toe -Combined with other wound No -Current Size (cm) - Length 0.2 -Current Size (cm) - Width 0.1 -Current Size (cm) - Depth 0.2 -Total Square Cm 0.02 -Photo Taken No -Epithelialization None Present -Tunneling No -Undermining/Tunneling Yes -Undermining/Tunneling Starts (O' 12 clock) -Undermining/Tunneling Ends (O'clock) 12 -Maximum Distance (cm) 0.2 -Circular Undermining Yes -Exudate Amt Small -Exudate Type Serous -Wound Margin Distinct, Outline Attached -Granulation Amt Large (67-100%) -Granulation Quality Red -Slough/Fibrin No -Necrosis Amt None Present (0 %) -Texture (Selma-wound Skin Appearance) Assessed,Callus ,Scarring -Moisture (Selma-wound Skin Appearance Assessed,Dry/ ) Scaly -Color (Selma-wound Skin Appearance) Assessed -Temperature (Selma-wound Skin No Abnormality Appearance) (Pt Warm) -Tenderness on Palpation (Selma-wound Yes Skin Appearance) -Ulcer Cleansing Rinsed/ Irrigated with Saline -Foul Odor after Cleansing No -Anesthetic Used 5% Lidocaine Gel WC - Nurse 2 - General Ulcer CM Notes Start: 05/06/19 09:03 Freq: Status: Active Protocol: Activity Type Activity Date Activity User E-Sign Co-Sign Detail Recorded Client Recorded Date Recorded By Document 05/20/19 09:18 AN [id number] 05/20/19 09:23 AN 05/20/19 09:18 Wound Center Nurse 2 [Procedure/Treatment] -Time 09:20 -Correct Patient Yes -Correct Side, Site, Position Yes -Correct Procedure Yes -Procedure Performed Yes -Type of Procedure Debridement -Clinical Debridement Subcutaneous -Post Debridement Size (cm) - Length 0.3 -Post Debridement Size (cm) - Width 0.2 -Post Debridement Size (cm) - Depth 0.2 -Total Square Cm 0.06 -Wound/Ulcer Outcome Not Healed -Ulcer Cleansing Rinsed/ Irrigated with Saline -Foul Odor after Cleansing No -Bioengineered Tissue No -Bleeding Controlled with Pressure -Offloading Yes -Type of Offloading Camwalker -Treatment Response Procedure Tolerated Well [See Physician Procedure note for Specifics] Pain Scale: 0-10 Numeric [Pain] -Is Patient Pain Free? Yes Musculoskeletal: No Tenderness to Palpation of Joints or Extremities, Muscle Wasting, - - Decreased loaded first metatarsophalangeal joint range of motion left Neurological: - - Lack of normal epicritic sensation light touch consistent with neuropathy Psych/Mental Status: Normal Affect, Appropriate Debridement Note Post-Debridement Measurements/Treatment WC - Nurse 2 - General Ulcer CM Notes Start: 05/06/19 09:03 Freq: Status: Active Protocol: Activity Type Activity Date Activity User E-Sign Co-Sign Detail Recorded Client Recorded Date Recorded By Document 05/06/19 09:16 [id number] 05/06/19 09:16 Document 05/20/19 09:18 AN [id number] 05/20/19 09:23 AN 05/06/19 05/20/19 09:16 09:18 Wound Center Nurse 2 #1 L Grt Toe -Time 09:16 09:20 -Correct Patient Yes Yes -Correct Side, Site, Position Yes Yes -Correct Procedure Yes Yes -Procedure Performed Yes Yes -Type of Procedure Debridement Debridement -Clinical Debridement Subcutaneous Subcutaneous -Post Debridement Size (cm) - Length 0.4 0.3 -Post Debridement Size (cm) - Width 0.3 0.2 -Post Debridement Size (cm) - Depth 0.2 0.2 -Total Square Cm 0.12 0.06 -Wound/Ulcer Outcome Not Healed Not Healed -Ulcer Cleansing Rinsed/ Rinsed/ Irrigated with Irrigated with Saline Saline -Foul Odor after Cleansing No No -Bioengineered Tissue No No -Bleeding Controlled with Pressure Pressure -Offloading Yes Yes -Type of Offloading Camwalker Camwalker -Treatment Response Procedure Procedure Tolerated Well Tolerated Well Pain Scale: 0-10 Numeric Is Patient Pain Free? Yes Yes Wound debrided: plantar hallux distal Laterality: Left Wound Grade/Stage: grade 1 Type of Debridement: Excisional debridement Anesthesia Used: 5% Lidocaine Gel Depth: in the subcutaneous layer Percentage of wound debrided: 100 Instrument Used: #15 blade Tissue Removed: fibrous, devitalized subcutaneous, biofilm, slough Severity: Fat Layer Exposed Amount of bleeding with debridement: Mild Bleeding Controlled with: Pressure Patient tolerated procedure well Assessment/Plan Active Problems Diabetic neuropathy (Chronic) Chronic ulcer of left foot with fat layer exposed (Chronic) Hallux limitus of left foot (Chronic) Malnutrition (Chronic) Delayed wound healing (Chronic) Skin ulcer of left foot (Acute) Non-pressure chronic ulcer of other part of left foot with fat layer exposed (Chronic) Assessment: Left hallux ulcer with fat layer exposed. Hallux limitus. Diabetes with neuropathy. Delayed wound healing. Malnutrition suspected Plan: This is a 63-year-old male seen today for chronic ulceration and I reviewed and discussed his case. He has been using Regranex daily; to continue use. To continue nutritional supplementation, Paulie. To drink twice daily. To better offload the ulcer site with a cam walker boot with offloading dual density Plastizote liners with a pocket. He obtained this already and compliance was reviewed. I also cut additional offloading pocket into the black liner to take pressure off of this ulcer site. His previous noninvasive lower extremity arterial study was also performed,which appears to be normal, revealing triphasic waveforms at ankle level bilaterally, and normal resting ankle?brachial indices and normal digital?brachial indices bilaterally. His previous lab results have been obtained from [facility], dated January 12, 2019, with results as follows: Fasting glucose 126, erythrocyte sedimentation rate 8, total protein 6.5, hemoglobin A1c 6.2, folate 31.8, vitamin B12 613, albumin 3.3. Previous x-rays from 02/10/2019 reviewed without acute injuries or osseous destruction. . He reports that he only has a diagnosis of prediabetes and is under the management of his primary care physician. I recommended extra depth shoes to prevent further breakdown. I did give him a referral with a prescription to obtain extra-depth shoe with dual density offloading liners with offloading pocket to further prevent additional ulcer and callus formation. He will present to the foot and ankle Center to complete this process. To return to the wound healing center in 1 week or call sooner if he has any questions or concerns.
[2019-05-27 08:31] VITALS: BP 152/87; PULSE 92; RESP 18; TEMP 36.7; BMI 28.1
--- NOTE | 2019-05-27 09:38 | PCM.WC.PN ---
(1) Chronic ulcer of left foot with fat layer exposed Status: Chronic Current Visit: Yes Code(s): L97.522 - Non-pressure chronic ulcer of other part of left foot with fat layer exposed (2) Diabetic neuropathy Status: Chronic Current Visit: Yes Qualifiers: Diabetes mellitus type: type 2 Code(s): E11.40 - Type 2 diabetes mellitus with diabetic neuropathy, unspecified (3) Hallux limitus of left foot Status: Chronic Current Visit: Yes Code(s): M20.5X2 - Other deformities of toe(s) (acquired), left foot (4) Malnutrition Status: Chronic Current Visit: Yes Code(s): E46 - Unspecified protein-calorie malnutrition (5) Delayed wound healing Status: Chronic Current Visit: Yes Code(s): T14.8XXD - Other injury of unspecified body region, subsequent encounter Type of Wound Date of Service: 05/27/19 Chief Complaint: Diabetic foot ulcer, left great toe, Valentine grade 1 History of Wound: This is a 63-year-old male who was recently diagnosed with diabetes mellitus. He has a history of peripheral neuropathy also. He denies fever, chill, nausea, vomiting, loss of appetite. He wears offloading CAM Walker more consistently. He did obtain his nutrition supplementation Paulie paige and is taking this as advised. He changes the dressing daily with reGranix. He was measured for extra-depth shoes with offloading dual density Plastizote liners at the foot and ankle center. He complains of a callus that is bothersome to the left outside ball the foot. He denies drainage or redness. He asked for help safely trimming the site in which she is unable to perform on his own. As noted he does have prediabetes with a history of delayed ulcer healing and foot deformities. Progress of Wound: Improving - Physical Exam Vital Signs Temp Pulse Resp BP 98.0 F 92 18 152/87 H 05/27/19 08:31 05/27/19 08:31 05/27/19 08:31 05/27/19 08:31 General: Alert, Oriented x3, Cooperative, No apparent distress HEENT: Atraumatic Extremities: No cyanosis, Capillary Refill Less than 3 Seconds, No Calf Tenderness, Diminished Peripheral Pulses, Edema - Mild left, - - Decreased left first metatarsophalangeal joint range of motion left and right Skin: Ulcer/ Wound - No purulence, erythema, streaking, odor, infection, deep probing. Peripheral skin is hairless and atrophic. The ulcer size is decreasing with peripheral epithelialization, - - Left sub-fifth metatarsal head callus without drainage or ulcer formation noted after debridement Wound Measurements and Assessment WC - Nurse 1 - General Ulcer Measurement Start: 05/06/19 09:03 Freq: Status: Active Protocol: Activity Type Activity Date Activity User E-Sign Co-Sign Detail Recorded Client Recorded Date Recorded By Document 05/27/19 08:31 [id number] 05/27/19 08:34 05/27/19 08:31 Wound Center Nurse 1 [Ulcer Assessment] #1 L Grt Toe -Combined with other wound No -Current Size (cm) - Length 0.1 -Current Size (cm) - Width 0.1 -Current Size (cm) - Depth 0.1 -Total Square Cm 0.01 -Photo Taken No -Epithelialization None Present -Tunneling No -Undermining/Tunneling No -Circular Undermining No -Exudate Amt None Present -Wound Margin Thickened -Granulation Amt None Present (0 %) -Granulation Quality N/A -Slough/Fibrin Yes -Necrosis Amt Small (1-33%) -Necrotic Tissue Type Adherent Slough -Structure Exposed None/Limited to Skin Breakdown -Texture (Selma-wound Skin Appearance) Callus -Moisture (Selma-wound Skin Appearance No Abnormality, ) Assessed -Color (Selma-wound Skin Appearance) No Abnormality, Assessed -Temperature (Selma-wound Skin No Abnormality Appearance) (Pt Warm) -Tenderness on Palpation (Selma-wound No Skin Appearance) -Ulcer Cleansing Rinsed/ Irrigated with Saline -Foul Odor after Cleansing No -Anesthetic Used 4% Lidocaine Solution [Edema Assessment] -Lower Limb Edema Present NA WC - Nurse 2 - General Ulcer CM Notes Start: 05/06/19 09:03 Freq: Status: Active Protocol: Activity Type Activity Date Activity User E-Sign Co-Sign Detail Recorded Client Recorded Date Recorded By Document 05/27/19 08:45 [id number] 05/27/19 08:46 05/27/19 08:45 Wound Center Nurse 2 [Procedure/Treatment] #1 L Grt Toe -Time 08:45 -Correct Patient Yes -Correct Side, Site, Position Yes -Correct Procedure Yes -Procedure Performed Yes -Type of Procedure Debridement -Clinical Debridement Subcutaneous -Post Debridement Size (cm) - Length 0.3 -Post Debridement Size (cm) - Width 0.1 -Post Debridement Size (cm) - Depth 0.2 -Total Square Cm 0.03 -Wound/Ulcer Outcome Not Healed -Ulcer Cleansing Rinsed/ Irrigated with Saline -Foul Odor after Cleansing No -Bioengineered Tissue No -Bleeding Controlled with Pressure -Offloading Yes -Type of Offloading Camwalker -Treatment Response Procedure Tolerated Well [See Physician Procedure note for Specifics] Pain Scale: 0-10 Numeric [Pain] -Is Patient Pain Free? Yes Musculoskeletal: No Tenderness to Palpation of Joints or Extremities, Muscle Wasting Neurological: - - Lack of normal epicritic sensation to light touch Psych/Mental Status: Normal Affect, Appropriate Debridement Note Post-Debridement Measurements/Treatment WC - Nurse 2 - General Ulcer CM Notes Start: 05/06/19 09:03 Freq: Status: Active Protocol: Activity Type Activity Date Activity User E-Sign Co-Sign Detail Recorded Client Recorded Date Recorded By Document 05/06/19 09:16 [id number] 05/06/19 09:16 Document 05/20/19 09:18 AN [id number] 05/20/19 09:23 AN Document 05/27/19 08:45 [id number] 05/27/19 08:46 05/06/19 05/20/19 05/27/19 09:16 09:18 08:45 Wound Center Nurse 2 #1 L Grt Toe -Time 09:16 09:20 08:45 -Correct Patient Yes Yes Yes -Correct Side, Site, Position Yes Yes Yes -Correct Procedure Yes Yes Yes -Procedure Performed Yes Yes Yes -Type of Procedure Debridement Debridement Debridement -Clinical Debridement Subcutaneous Subcutaneous Subcutaneous -Post Debridement Size (cm) - Length 0.4 0.3 0.3 -Post Debridement Size (cm) - Width 0.3 0.2 0.1 -Post Debridement Size (cm) - Depth 0.2 0.2 0.2 -Total Square Cm 0.12 0.06 0.03 -Wound/Ulcer Outcome Not Healed Not Healed Not Healed -Ulcer Cleansing Rinsed/ Rinsed/ Rinsed/ Irrigated with Irrigated with Irrigated with Saline Saline Saline -Foul Odor after Cleansing No No No -Bioengineered Tissue No No No -Bleeding Controlled with Pressure Pressure Pressure -Offloading Yes Yes Yes -Type of Offloading Camwalker Camwalker Camwalker -Treatment Response Procedure Procedure Procedure Tolerated Well Tolerated Well Tolerated Well Pain Scale: 0-10 Numeric Is Patient Pain Free? Yes Yes Yes Wound debrided: plantar distal hallux Laterality: Left Wound Grade/Stage: grade 1 Type of Debridement: Excisional debridement Anesthesia Used: 5% Lidocaine Gel Depth: in the subcutaneous layer Percentage of wound debrided: 100 Instrument Used: #15 blade Tissue Removed: fibrous, devitalized subcutaneous, biofilm, slough Severity: Fat Layer Exposed Amount of bleeding with debridement: Mild Bleeding Controlled with: Pressure Patient tolerated procedure well Assessment/Plan Active Problems Diabetic neuropathy (Chronic) Chronic ulcer of left foot with fat layer exposed (Chronic) Hallux limitus of left foot (Chronic) Malnutrition (Chronic) Delayed wound healing (Chronic) Skin ulcer of left foot (Acute) Non-pressure chronic ulcer of other part of left foot with fat layer exposed (Chronic) Assessment: Left hallux ulcer with fat layer exposed. Hallux limitus. Diabetes with neuropathy. Delayed wound healing. Malnutrition suspected Plan: This is a 63-year-old male seen today for chronic ulceration and I reviewed and discussed his case. He has been using Regranex daily; to continue use. To continue nutritional supplementation, Paulie. To drink twice daily. To better offload the ulcer site with a cam walker boot with offloading dual density Plastizote liners with a pocket. He obtained this already and compliance was reviewed. I also cut additional offloading pocket into the black liner to take pressure off of this ulcer site. His previous noninvasive lower extremity arterial study was also performed,which appears to be normal, revealing triphasic waveforms at ankle level bilaterally, and normal resting ankle?brachial indices and normal digital?brachial indices bilaterally. His previous lab results have been obtained from [facility], dated January 12, 2019, with results as follows: Fasting glucose 126, erythrocyte sedimentation rate 8, total protein 6.5, hemoglobin A1c 6.2, folate 31.8, vitamin B12 613, albumin 3.3. Previous x-rays from 02/10/2019 reviewed without acute injuries or osseous destruction. . He reports that he only has a diagnosis of prediabetes and is under the management of his primary care physician. I recommended extra depth shoes to prevent further breakdown. I did give him a referral with a prescription to obtain extra-depth shoe with dual density offloading liners with offloading pocket to further prevent additional ulcer and callus formation. He was measured and will be called when they arrive. The a forementioned callus sub-left fifth metatarsal head was debrided without incident with a 15 blade. He was advised to moisturize in this area. To monitor for ulcer or infection formation which neither is noted today. To return to the wound healing center in 1 week or call sooner if he has any questions or concerns.
== END 2019-05-31 23:59 ==
LOC: WC 08:30
PROVIDERS: Family Provider Family Medicine; PCP Family Medicine; Referring Provider Surgery; Visit Provider Podiatrist
DX: E11.621 Type 2 diabetes mellitus with foot ulcer (principal); L97.522 Non-pressure chronic ulcer of other part of left foot with fat layer exposed; M20.5X2 Other deformities of toe(s) (acquired), left foot; E11.40 Type 2 diabetes mellitus with diabetic neuropathy, unspecified
CPT/HCPCS: 11042

== ENCOUNTER 2019-06-03 08:47 | Outpatient (RCR) | payer OTHER, SELFPAY ==
[2019-06-01 00:22] VITALS: BP 152/87; PULSE 92; RESP 18; TEMP 36.7
[2019-06-03 08:55] VITALS: BP 135/77; PULSE 77; RESP 18; TEMP 36.7; BMI 28.1
--- NOTE | 2019-06-03 09:14 | PCM.WC.PN ---
(1) Chronic ulcer of left foot with fat layer exposed Status: Resolved Current Visit: Yes Code(s): L97.522 - Non-pressure chronic ulcer of other part of left foot with fat layer exposed (2) Diabetic neuropathy Status: Chronic Current Visit: Yes Qualifiers: Diabetes mellitus type: other specified (including COLLEEN) Code(s): E11.40 - Type 2 diabetes mellitus with diabetic neuropathy, unspecified Comment: 'prediabetes' (3) Hallux limitus of left foot Status: Chronic Current Visit: Yes Code(s): M20.5X2 - Other deformities of toe(s) (acquired), left foot Type of Wound Date of Service: 06/03/19 Chief Complaint: Diabetic foot ulcer, left great toe, Valentine grade 1 History of Wound: This is a 63-year-old male who was recently diagnosed with pre-diabetes mellitus. He has a history of peripheral neuropathy also. He denies fever, chill, nausea, vomiting, loss of appetite. He wears offloading CAM Walker more consistently. He did obtain his nutrition supplementation Paulie paige and is taking this as advised. He changes the dressing daily with reGranix. He thinks the ulcer site is healed because there is no longer any drainage. He was measured for extra-depth shoes with offloading dual density Plastizote liners at the foot and ankle center. He is waiting for arrival. Progress of Wound: Healed - Physical Exam Vital Signs Temp Pulse Resp BP 98.0 F 77 18 135/77 H 06/03/19 08:55 06/03/19 08:55 06/03/19 08:55 06/03/19 08:55 General: Alert, Oriented x3, Cooperative, No apparent distress Extremities: No cyanosis, Capillary Refill Less than 3 Seconds, No Calf Tenderness, Diminished Peripheral Pulses, Edema, - - He was noted first metatarsophalangeal joint range of motion bilateral Skin: Ulcer/ Wound - Full epithelialization is noted to the left hallux and this ulcer site is healed. The peripheral skin is hairless and atrophic. There is no interdigital maceration or other ulcers., - - Callus continues distal right hallux and I suspect his shoes are improperly fitted Wound Measurements and Assessment WC - Nurse 1 - General Ulcer Measurement Start: 06/03/19 08:55 Freq: Status: Active Protocol: Activity Type Activity Date Activity User E-Sign Co-Sign Detail Recorded Client Recorded Date Recorded By Document 06/03/19 08:55 [facility] [id number] 06/03/19 08:56 [facility] 06/03/19 08:55 Wound Center Nurse 1 [Ulcer Assessment] #1 L Grt Toe -Current Size (cm) - Length 0.1 -Current Size (cm) - Width 0.1 -Current Size (cm) - Depth 0.1 -Total Square Cm 0.01 -Epithelialization Large 67-100% -Texture (Selma-wound Skin Appearance) Assessed,Callus -Moisture (Selma-wound Skin Appearance No Abnormality, ) Assessed -Color (Selma-wound Skin Appearance) No Abnormality, Assessed -Temperature (Selma-wound Skin No Abnormality Appearance) (Pt Warm) -Tenderness on Palpation (Selma-wound No Skin Appearance) -Ulcer Cleansing Rinsed/ Irrigated with Saline -Anesthetic Used 5% Lidocaine Gel [Edema Assessment] -Lower Limb Edema Present NA - Nurse 2 - General Ulcer CM Notes Start: 06/03/19 08:55 Freq: Status: Active Protocol: Activity Type Activity Date Activity User E-Sign Co-Sign Detail Recorded Client Recorded Date Recorded By Document 06/03/19 08:56 [id number] 06/03/19 08:56 06/03/19 08:56 Wound Center Nurse 2 [Procedure/Treatment] #1 L Grt Toe -Correct Patient No -Correct Side, Site, Position No -Correct Procedure No -Procedure Performed No -Post Debridement Size (cm) - Length 0 -Post Debridement Size (cm) - Width 0 -Post Debridement Size (cm) - Depth 0 -Total Square Cm 0 -Wound/Ulcer Outcome Healed- Epithelialized [See Physician Procedure note for Specifics] Pain Scale: 0-10 Numeric [Pain] -Is Patient Pain Free? Yes Musculoskeletal: No Tenderness to Palpation of Joints or Extremities, Muscle Wasting Neurological: - - Lack of epicritic sensation to light touch consistent with neuropathy Psych/Mental Status: Normal Affect, Appropriate Debridement Note Post-Debridement Measurements/Treatment - Nurse 2 - General Ulcer CM Notes Start: 06/03/19 08:55 Freq: Status: Active Protocol: Activity Type Activity Date Activity User E-Sign Co-Sign Detail Recorded Client Recorded Date Recorded By Document 06/03/19 08:56 [id number] 06/03/19 08:56 06/03/19 08:56 Wound Center Nurse 2 #1 L Grt Toe -Correct Patient No -Correct Side, Site, Position No -Correct Procedure No -Procedure Performed No -Post Debridement Size (cm) - Length 0 -Post Debridement Size (cm) - Width 0 -Post Debridement Size (cm) - Depth 0 -Total Square Cm 0 -Wound/Ulcer Outcome Healed- Epithelialized Pain Scale: 0-10 Numeric Is Patient Pain Free? Yes No debridement was completed today - Healed today Assessment/Plan Active Problems Diabetic neuropathy (Chronic) 'prediabetes' Hallux limitus of left foot (Chronic) Assessment: Left hallux ulcer healed today. Hallux limitus. Diabetes with neuropathy. Delayed wound healing. Malnutrition suspected Plan: This is a 63-year-old male seen today for chronic ulceration and I reviewed and discussed his case. No debridement was performed today because the ulcer site is healed. He can discontinue dressing changes and he is discharged from the wound healing center at this time. To monitor closely for signs of return or infection in which neither is noted today. I will follow-up with him when he picks up his shoes and custom insoles at the foot and ankle center to confirm the site has remained healed and is doing well. I did recommend better fitting shoes and an X was cut in the distal right second shoe upper to take pressure off of the hallux site. It is okay to discontinue nutritional supplementation this time. To continue CAM Walker on the left foot until he gets the appropriate shoe gear. I answered all of his questions.
== END 2019-07-01 23:59 ==
LOC: WC 08:47
PROVIDERS: Family Provider Family Medicine; PCP Family Medicine; Referring Provider Surgery; Visit Provider Podiatrist
DX: Z09 Encounter for follow-up examination after completed treatment for conditions other than malignant neoplasm (principal); M20.5X2 Other deformities of toe(s) (acquired), left foot; E11.40 Type 2 diabetes mellitus with diabetic neuropathy, unspecified
CPT/HCPCS: 99212; G0463

== ENCOUNTER → 2019-06-03 16:36 | Outpatient (CLI) | payer OTHER, SELFPAY ==
[2019-06-03 08:55] VITALS: BMI 28.1
[2019-06-03 18:11] LABS: Erythrocyte Sedimentation Rate 8 mm/hr (0-20)
[2019-06-03 18:12] LABS: AST(SGOT) 45 U/L (15-37); Alanine Aminotransfer ALT/SGPT 69 U/L (16-61); Albumin, Serum 3.6 g/dL (3.2-5.0); Alkaline Phosphatase 86 U/L (45-117); Bilirubin, Direct 0.14 mg/dL (0.00-0.30); GGTP 61 U/L (15-85); Globulin 3.8 g/dL (2.2-4.2); Protein, Total 7.4 g/dL (6.4-8.2)
== END ==
PROVIDERS: Family Provider Family Medicine; PCP Family Medicine; Referring Provider Internal Medicine Gastroenterology; Visit Provider Internal Medicine Gastroenterology
DX: K75.9 Inflammatory liver disease, unspecified (principal)
CPT/HCPCS: 36415; 80076; 82977; 85652

== ENCOUNTER → 2021-09-25 16:12 | Outpatient (CLI) | payer OTHER, SELFPAY ==
[2021-09-25 18:21] LABS: ALB/GLOB Ratio 0.9 RATIO (0.9-2.4); AST(SGOT) 43 U/L (15-37); Alanine Aminotransfer ALT/SGPT 68 U/L (16-61); Albumin, Serum 3.7 g/dL (3.2-5.0); Alkaline Phosphatase 102 U/L (45-117); Anion Gap 8 (5-15); BUN 21 mg/dL (7-18); BUN/Creat Ratio 15.3 RATIO (10-20); CRP < 2.90 mg/L (0.0-3.0); Calcium,Total 9.9 mg/dL (8.5-10.1); Chloride 110 mmol/L (98-107); Creatinine, Serum 1.37 mg/dL (0.70-1.30); EST Glomerular Filtration Rate 55 mL/min (>60); Est Glom Filt Rate - Afr Amer 67 mL/min (>60); GGTP 303 U/L (15-85); Globulin 4.3 g/dL (2.2-4.2); Glucose 96 mg/dL (74-106); Potassium 3.7 mmol/L (3.5-5.1); Sodium Level 142 mmol/L (136-145)
== END ==
PROVIDERS: PCP Family Medicine; Referring Provider Internal Medicine Gastroenterology; Visit Provider Internal Medicine Gastroenterology
DX: K83.09 Other cholangitis (principal); K51.90 Ulcerative colitis, unspecified, without complications
CPT/HCPCS: 36415; 80053; 82977; 86140